=== PATIENT | male | born 1965 | race Caucasian/White ===

== ENCOUNTER 2020-08-30 09:14 | Emergency (ER) | payer OTHER ==
[2020-08-30 09:21] VITALS: BP 146/67; PULSE 80; TEMP 98.8; BMI 38.3
[2020-08-30] MEDS ORDERED: ACETAMINOPHEN 325 MG TABLET (FP) PO ONE (09:37)
[2020-08-30] MEDS ORDERED: METHOCARBAMOL 500 MG TABLET ONE (10:19)
[2020-08-30] MEDS ORDERED: ACETAMINOPHEN 500 MG TABLET (FP) ONE (10:19)
[2020-08-30] MEDS ORDERED: IBUPROFEN 400 MG TABLET (FP) PO ONE ×2 (10:19→10:23)
[2020-08-30] MEDS ORDERED: METHOCARBAMOL 500 MG TABLET PO ONE (10:23)
== END 2020-08-30 11:40 | disposition home or self-care (01) ==
LOC: JER 09:14
DX: U07.1 COVID-19 (principal); M54.5 Low back pain
CPT/HCPCS: 72100-TC-FY; 99284-25; C9803; U0003